=== PATIENT | female | born 1950 | race Caucasian/White ===

== ENCOUNTER 2017-10-10 16:18 | Observation (INO) | payer OTHER, MEDICAID ==
[2017-10-10 19:01] LABS: ADD MAN DIFF? NO
[2017-10-10 19:04] LABS: WHITE BLOOD COUNT 5.7 10^3/ul (4.8-10.8)
[2017-10-10 19:04] LABS: BASOPHILS % 0.7 % (0.0-2.0); EOSINOPHILS % 0.5 % (0.0-7.0); HEMATOCRIT 38.6 % (37.0-47.0); HEMOGLOBIN 13.1 g/dl (12.0-16.0); LYMPHOCYTES % 35.4 % (15.0-51.0); MEAN CORPUSCULAR HEMOGLOBIN 34.3 pg (29.0-33.0); MEAN CORPUSCULAR HGB CONC 33.9 g/dl (32.0-37.0); MEAN PLATELET VOLUME 10.6 fl (7.4-10.4); MONOCYTE # 0.5 10^3/ul (0.3-0.9); MONOCYTES % 8.8 % (0.0-11.0); NEUTROPHIL # 3.1 10^3/ul (1.6-7.5); NEUTROPHILS % 54.4 % (39.0-77.0); PLATELET COUNT 279 10^3/UL (140-415); RED BLOOD COUNT 3.82 10^6/ul (4.20-5.40); RED CELL DISTRIBUTION WIDTH 12.4 % (11.5-14.5)
[2017-10-10 19:26] LABS: MAGNESIUM 1.7 mg/dl (1.7-2.5)
[2017-10-10 19:26] LABS: ALANINE AMINOTRANSFERASE 26 IU/L (13-69); ALBUMIN/GLOBULIN RATIO 1.37; ALKALINE PHOSPHATASE 62 IU/L (42-121); ANION GAP 14 (8-16); ASPARTATE AMINO TRANSFERASE 21 IU/L (15-46); BILIRUBIN,INDIRECT 0.4 mg/dl (0-1.1); BILIRUBIN,TOTAL 0.4 mg/dl (0.2-1.3); BLOOD UREA NITROGEN 10 mg/dl (7-20); CALCIUM 9.9 mg/dl (8.4-10.2); CARBON DIOXIDE 26 mmol/L (21-31); CHLORIDE 108 mmol/L (97-110); CREATININE 0.59 mg/dl (0.44-1.00); GLUCOSE 103 mg/dl (70-220); POTASSIUM 3.6 mmol/L (3.5-5.1); SODIUM 144 mmol/L (135-144); TOTAL PROTEIN 6.9 g/dl (6.1-8.1)
[2017-10-10] MEDS: DIPHENHYDRAMINE 50 MG INJ IV (19:34)
[2017-10-10] MEDS: PROCHLORPERAZINE 10 MG INJ IV (19:34)
[2017-10-10] MEDS: ACETAMINOPHEN 325 MG TAB PO (19:34)
[2017-10-10] MEDS: SOD CHLORIDE 0.9% 1,000 ML IV (19:34)
[2017-10-10] MEDS: LORAZEPAM 2 MG INJ IV ×2 (19:35→22:20)
[2017-10-10 19:36] LABS: B-TYPE NATRIURETIC PEPTIDE 373 PG/ML (0-125); TROPONIN-I < 0.012 ng/ml (0.00-0.12)
[2017-10-10] MEDS: KETOROLAC 30 MG INJ IV (19:37)
[2017-10-10] MEDS: MAGNESIUM SULFATE 2 GM/50 ML 50 ML IVPB (19:41)
[2017-10-10 19:52] LABS: PROTIME 12.7 Sec (11.9-14.9)
[2017-10-10 19:53] LABS: INR 0.94
[2017-10-10] MEDS ORDERED: ACETAMINOPHEN 325 MG TAB PO (23:30)
[2017-10-10] MEDS ORDERED: ONDANSETRON 4 MG INJ IV (23:30)
[2017-10-11] MEDS ORDERED: LORAZEPAM 0.5 MG TAB PO
[2017-10-11] MEDS ORDERED: ACETAMINOPHEN 325 MG TAB PO
[2017-10-11] MEDS ORDERED: NACL 0.9% 3 ML SYG IV
[2017-10-11 00:58] LABS: TROPONIN-I < 0.012 ng/ml (0.00-0.12)
[2017-10-11] MEDS: LABETALOL HCL 20MG INJ IV ×2 (03:15→11:57)
[2017-10-11 06:56] LABS: TROPONIN-I < 0.012 ng/ml (0.00-0.12)
== END 2017-10-11 13:06 | disposition home or self-care (01) ==
LOC: MS4 23:30 → E/R 16:18
DX: R55 Syncope and collapse (principal); I45.81 Long QT syndrome; F17.200 Nicotine dependence, unspecified, uncomplicated; I10 Essential (primary) hypertension; F32.9 Major depressive disorder, single episode, unspecified; F41.9 Anxiety disorder, unspecified; M06.9 Rheumatoid arthritis, unspecified
CPT/HCPCS: 70450; 71045; 80053; 83735; 83880; 84484; 85025; 85610; 93005; 96374; 96375; 96376; 99285-25; G0378